=== PATIENT | female | born 1990 | race Two or more races ===

== ENCOUNTER 2018-11-23 10:47 | Emergency (ER) | payer SELFPAY ==
--- NOTE | 2018-11-23 11:20 | ED PDOC ---
Arrival/HPI - General Historian: Patient - History of Present Illness Narrative History of Present Illness (Text): 11/23/18 11:18 28F past medical history of allergic rhinitis presents with a severe headache and frontal sinus congestion. worse in frontal sinus, took mucinex with no relief, pt says home dose of sinuglair does not work either. Pt also complains of a cough. Pt denies fevers, nausea, vomiting, chest pain, neck pain, dizziness, vision changes, neck pain, hearing changes, 11/23/18 12:21 Time/Duration: 24 hours Symptom Course: Unchanged Quality: Fullness Activities at Onset: Rest <Avery Fallon - Last Filed: 11/23/18 12:02> <Norberto Jerry - Last Filed: 11/23/18 13:53> - General Chief Complaint: Headache Time Seen by Provider: 11/23/18 10:58 Past Medical History - Provider Review Nursing Documentation Reviewed: Yes - Infectious Disease Hx of Infectious Diseases: None - Reproductive Menopause: No - Cardiac Hx Cardiac Disorders: No - Pulmonary Hx Respiratory Disorders: No - Neurological Hx Neurological Disorder: No - HEENT Hx HEENT Disorder: No - Renal Hx Renal Disorder: No - Endocrine/Metabolic Hx Hypothyroidism: Yes - Psychiatric Hx Substance Use: No - Anesthesia Hx Anesthesia: No <Avery Fallon - Last Filed: 11/23/18 12:02> Family/Social History - Physician Review Nursing Documentation Reviewed: Yes Family/Social History: Unknown Family HX Smoking Status: Unknown If Ever Smoked Hx Alcohol Use: Yes Frequency of alcohol use: Socially Hx Substance Use: No <Avery Fallon - Last Filed: 11/23/18 12:02> Allergies/Home Meds <Avery Fallon - Last Filed: 11/23/18 12:02> <Norberto Jerry - Last Filed: 11/23/18 13:53> Allergies/Adverse Reactions: Allergies seasonal Allergy (Uncoded 11/23/18 11:00) COUGH Home Medications: Home Meds Medication Instructions Recorded Confirmed Levothyroxine [Synthroid] 0.112 mg PO DAILY 11/23/18 11/23/18 Montelukast [Singulair] 10 mg PO DAILY 11/23/18 11/23/18 Review of Systems - Physician Review All systems were reviewed & negative as marked: Yes - Review of Systems Constitutional: absent: Fevers, Night Sweats Eyes: Eye Pain. absent: Vision Changes ENT: absent: Hearing Changes, Sore Throat, Epistaxis Respiratory: Cough Cardiovascular: absent: Chest Pain Gastrointestinal: absent: Abdominal Pain, Nausea, Vomiting Musculoskeletal: absent: Arthralgias, Back Pain, Neck Pain, Myalgias Skin: absent: Rash Neurological: Headache. absent: Dizziness <Avery Fallon - Last Filed: 11/23/18 12:02> Physical Exam Vital Signs Temp Pulse Resp BP Pulse Ox 11/23/18 11:13 98.4 F 71 18 116/58 L 99 11/23/18 10:55 98.2 F 86 18 117/71 98 Temperature: Afebrile Blood Pressure: Normal Pulse: Regular Respiratory Rate: Normal Appearance: Positive for: Well-Appearing, Non-Toxic, Uncomfortable Pain Distress: Moderate Mental Status: Positive for: Alert and Oriented X 3 - Systems Exam Head: Present: Atraumatic, Normocephalic Pupils: Present: PERRL Extroacular Muscles: Present: EOMI Conjunctiva: Present: Normal. No: Injected Ears: Present: Normal. No: Erythema Mouth: Present: Moist Mucous Membranes Nose (Internal): Present: Boggy, Other (front and maxially sinus tenderness). No: Rhinorrhea Neck: Present: Normal Range of Motion, Other (neg mastoid pain on palp bilaterally). No: Lymphadenopathy Respiratory/Chest: Present: Clear to Auscultation. No: Respiratory Distress, Wheezes Cardiovascular: Present: Regular Rate and Rhythm, Normal S1, S2. No: Murmurs Upper Extremity: Present: NORMAL PULSES Lower Extremity: Present: Normal Inspection Neurological: Present: CN II-XII Intact, Speech Normal Skin: Present: Warm, Dry, Normal Color <Avery Fallon - Last Filed: 11/23/18 12:02> Vital Signs Temp Pulse Resp BP Pulse Ox 11/23/18 11:13 98.4 F 71 18 116/58 L 99 11/23/18 10:55 98.2 F 86 18 117/71 98 <Norberto Jerry - Last Filed: 11/23/18 13:53> Medical Decision Making ED Course and Treatment: 11/23/18 12:02 #allergic sinusitis -toradol 60mg IVP -pseudophed tab PO stat <Avery Fallon - Last Filed: 11/23/18 12:02> ED Course and Treatment: 11/23/18 13:50 Impression: 28 year old female presents to the emergency department complaining of a severe headache and frontal sinus congestion. In agreement with resident note which contains more details about the patient. Patient seen and evaluated with resident. Came up with plan and treatment together. Plan: -- Sudafed -- Toradol -- Tylenol -- Influenza A B -- Rapid Step Group A Antigen - Lab Interpretations Lab Results: Lab Results 11/23/18 11:24: Influenza Typ A,B (EIA) Negative for flu a/b, Grp A Beta Strep Ag Negative - Medication Orders Current Medication Orders: Discontinued Medications Ketorolac Tromethamine (Toradol) 60 mg IM STAT STA Stop: 11/23/18 12:15 Last Admin: 11/23/18 12:27 Dose: 60 mg MAR Pain Assessment Document 11/23/18 12:27 BB (Rec: 11/23/18 12:27 BB [id number]) Pain Reassessment Is this a pain reassessment? No Sleep Is patient sleeping during reassessment? No Presence of Pain Presence of Pain Yes Pain Scale Used Protocol: PSCALES Pain Scale Used Numeric Location Pain Location Body Manager Outreach Description Description Throbbing Intensity of Pain at present 6 Pain Behavior Withdrawal from Touch Grasping Site Rubbing Site IM Administration Charges Document 11/23/18 12:27 BB (Rec: 11/23/18 12:27 BB [id number]) Injection Site MAR Injection Site Left Gluteus Terrance Charges for Administration # of IM Administrations 1 Pseudoephedrine HCl (Sudafed Tab) 30 mg PO STAT STA Stop: 11/23/18 11:50 Last Admin: 11/23/18 12:27 Dose: 30 mg <Nroberto Jerry - Last Filed: 11/23/18 13:53> - PA / RN LONG TERM CARE / Resident Statement / has reviewed & agrees with the documentation as recorded. / has examined the patient and agrees with the treatment plan. - Scribe Statement The provider has reviewed the documentation as recorded by the Scribe Ronen murillo with Suni All medical record entries made by the Scribe were at my direction and personally dictated by me. I have reviewed the chart and agree that the record accurately reflects my personal performance of the history, physical exam, medical decision making, and the department course for this patient. I have also personally directed, reviewed, and agree with the discharge instructions and disposition. <Norberto Jerry - Last Filed: 11/23/18 13:53> Disposition/Present on Arrival - Present on Arrival Any Indicators Present on Arrival: No History of DVT/PE: No History of Uncontrolled Diabetes: No Urinary Catheter: No History of Decub. Ulcer: No History Surgical Site Infection Following: None - Disposition Have Diagnosis and Disposition been Completed?: Yes Disposition Time: 12:02 <Avery Fallon - Last Filed: 11/23/18 12:02> <Norberto Jerry - Last Filed: 11/23/18 13:53> - Disposition Diagnosis: Sinusitis Disposition: HOME/ ROUTINE Condition: GOOD Discharge Instructions (ExitCare): Sinus Headache (DC) Additional Instructions: CHANCE GERBER, thank you for letting us take care of you today. Your provider was Norberto Jerry MD and you were treated for headache / sore throat. The emergency medical care you received today was directed at your acute symptoms. If you were prescribed any medication, please fill it and take as directed. It may take several days for your symptoms to resolve. Return to the Emergency Department if your symptoms worsen, do not improve, or if you have any other problems. Please contact your doctor or call one of the physicians/clinics you have been referred to that are listed on the Patient Visit Information form that is included in your discharge packet. Bring any paperwork you were given at discharge with you along with any medications you are taking to your follow up visit. Our treatment cannot replace ongoing medical care by a primary care provider outside of the emergency department. Thank you for allowing the [facility] team to be part of your care today. You may follow up with an [employer]aper Car[employer] Supervisor, please obtain referral from PMD If you had an X-Ray or CT scan: A Radiologist will review the ED reading if any change in treatment is needed we will contact you. If you had a blood, urine, or wound culture: It will take several days for the results, if any change in treatment is needed we will contact you. If you had an STI test: It will take 48 hours for the results. Please call after 1 week if you have not heard back. Prescriptions: D-Methorphan/PE/Acetaminophen [Vicks Dayquil Liquicaps] 1 each PO Q4 #12 capsule Forms: [employer] (Bangladeshi), WORK NOTE
[2018-11-23 11:53] LABS: INFLUENZA A B NEGATIVE FOR FLU A/B (NEGATIVE)
[2018-11-23 13:07] VITALS: BP 116/58; PULSE 71; RESP 18; TEMP 98.4; O2SAT 99
== END 2018-11-23 12:02 | disposition home or self-care (01) ==
LOC: ED 10:47
DX: J32.9 Chronic sinusitis, unspecified (principal)
CPT/HCPCS: 87070; 87430; 87804; 96372; 99285; J1885

== ENCOUNTER 2019-01-02 11:00 | Inpatient (IN) | payer OTHER ==
[2019-01-02 11:25] VITALS: BMI 23.3
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
[2019-01-02 12:32] LABS: URINE APPEARANCE SLIGHT-CLOUDY (CLEAR); URINE BILIRUBIN NEGATIVE (NEGATIVE); URINE BLOOD MODERATE (NEGATIVE); URINE COLOR YELLOW (YELLOW); URINE GLUCOSE (UA) NEGATIVE (NEGATIVE); URINE LEUKOCYTE ESTERASE TRACE Leu/uL (NEGATIVE); URINE PROTEIN 100 mg/dL (<30 mg/dL); URINE UROBILINOGEN 0.2 E.U./dL (<1 E.U./dL)
[2019-01-02 12:34] LABS: BASO # 0.02 K/mm3 (0.0-2.0); BASO % 0.3 % (0.0-3.0); EOS % 0.4 % (1.5-5.0); HEMOGLOBIN 11.1 g/dL (12.0-16.0); LYMPH # 1.5 (1.2-3.4); LYMPH % 21.1 % (22.0-35.0); MEAN CORPUSCULAR HEMOGLOBIN 28.2 pg (25.0-35.0); MEAN CORPUSCULAR HGB CONC 33.1 g/dl (31.0-37.0); MEAN PLATELET VOLUME 10.2 fl (7.0-11.0); MONO # 0.5 (0.1-0.6); MONO % 6.6 % (1.0-6.0); RBC 3.94 10^6/uL (3.5-6.1); RED CELL DISTRIBUTION WIDTH 13.4 % (11.5-14.5); WHITE BLOOD COUNT 7.3 10^3/uL (4.5-11.0)
[2019-01-02 12:38] LABS: URINE BACTERIA MANY /hpf; URINE RBC 15 - 20 /hpf (0-2)
[2019-01-02 12:39] LABS: URINE AMORPHOUS SEDIMENT FEW /hpf; URINE COARSE GRANULAR CAST TRACE /hpf; URINE FINE GRANULAR CAST 0 - 2 /hpf
[2019-01-02] MEDS: Sodium Chloride 0.9% 1,000 ML IV SCH ×2 (12:42→23:14)
[2019-01-02 12:44] LABS: ALB/GLOB RATIO 1.2 (1.1-1.8); ALBUMIN 4.9 g/dL (3.0-4.8); AST/SGOT 24 U/L (14-36); BLOOD UREA NITROGEN 18 mg/dL (7-21); CALCIUM 9.6 mg/dL (8.4-10.5); GFR NON-AFRICAN AMERICAN 22
[2019-01-02 12:45] LABS: ALT/SGPT < 6 U/L (7-56)
--- NOTE | 2019-01-02 14:26 | CT ---
Date of service: 01/02/2019 PROCEDURE: CT Abdomen and Pelvis without intravenous contrast HISTORY: flank pain, abnormal kidney function COMPARISON: None. TECHNIQUE: Without contrast.. Contrast dose: 0 Radiation dose: Total exam DLP = 263.39 mGy-cm. This CT exam was performed using one or more of the following dose reduction techniques: Automated exposure control, adjustment of the mA and/or kV according to patient size, and/or use of iterative reconstruction technique. FINDINGS: LOWER THORAX: Unremarkable. LIVER: Unremarkable. No gross lesion or ductal dilatation. GALLBLADDER AND BILE DUCTS: Unremarkable. PANCREAS: Unremarkable. No gross lesion or ductal dilatation. SPLEEN: Unremarkable. ADRENALS: Unremarkable. No mass. KIDNEYS AND URETERS: Unremarkable. No hydronephrosis. No solid mass. VASCULATURE: Unremarkable. No aortic aneurysm. No aortic atherosclerotic calcification or mural plaque present. BOWEL: No bowel obstruction. Moderate retained feces. Likely constipation. No abnormal bowel loops. APPENDIX: Appendix not identified. There are surgical sutures seen about the cecum and about the proximal ascending colon, of uncertain significance. This may reflect prior appendectomy. Please correlate with patient's history. PERITONEUM: Minimal fluid in cul-de-sac. LYMPH NODES: Unremarkable. No enlarged lymph nodes. BLADDER: Suboptimally distended. No gross abnormality. REPRODUCTIVE: Unremarkable uterus BONES: No acute fracture. OTHER FINDINGS: None. IMPRESSION: No evidence of appendicitis. Postoperative changes suggests possible prior appendectomy. Minimal fluid in cul-de-sac common nonspecific. Retained feces. Likely constipation.
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
[2019-01-02 17:20] LABS: BARBITURATES, UR NEGATIVE (NEGATIVE); BENZODIAZEPINES, UR NEGATIVE (NEGATIVE); OPIATES, UR NEGATIVE (NEGATIVE); PHENCYCLIDINE, UR NEGATIVE (NEGATIVE)
[2019-01-02] MEDS: POLYETHYLENE GLYCOL 3350 17 GM/Dose PACKET PO SCH (17:47)
[2019-01-02 18:06] LABS: IRON 44 ug/dL (45-180)
[2019-01-02 18:15] LABS: % IRON SATURATION 14 % (20-55); TOTAL IRON BINDING CAPACITY 320 ug/dL (265-497)
[2019-01-03 01:23] LABS: MCH 28.8 pg (27.0-33.0); MCV 85.8 fL (80.0-100.0)
[2019-01-03] MEDS: Sodium Chloride 0.9% 1,000 ML IV SCH ×4 (05:32→21:00)
[2019-01-03 06:16] LABS: BASO # 0.01 K/mm3 (0.0-2.0); BASO % 0.1 % (0.0-3.0); EOS % 0.5 % (1.5-5.0); HEMOGLOBIN 10.6 g/dL (12.0-16.0); LYMPH # 1.3 (1.2-3.4); LYMPH % 18.2 % (22.0-35.0); MEAN CELL VOLUME 85.7 fl (80.0-105.0); MEAN CORPUSCULAR HEMOGLOBIN 28.6 pg (25.0-35.0); MEAN CORPUSCULAR HGB CONC 33.3 g/dl (31.0-37.0); MEAN PLATELET VOLUME 10.6 fl (7.0-11.0); MONO # 0.8 (0.1-0.6); MONO % 10.3 % (1.0-6.0); RBC 3.71 10^6/uL (3.5-6.1); RED CELL DISTRIBUTION WIDTH 13.3 % (11.5-14.5); WHITE BLOOD COUNT 7.4 10^3/uL (4.5-11.0)
[2019-01-03 06:54] LABS: FREE T4 1.19 ng/dL (0.78-2.19); T4 7.1 ug/dL (5.5-11.0)
[2019-01-03 07:07] LABS: T3 0.71 ng/mL (0.97-1.69)
[2019-01-03] MEDS ORDERED: Levothyroxine 112 MCG TAB PO SCH ×2 (07:30→20:17)
[2019-01-03 07:33] LABS: ALB/GLOB RATIO 1.3 (1.1-1.8); ALBUMIN 4.2 g/dL (3.0-4.8); ALT/SGPT < 6 U/L (7-56); AST/SGOT 20 U/L (14-36); BLOOD UREA NITROGEN 16 mg/dL (7-21); CALCIUM 8.9 mg/dL (8.4-10.5); GFR NON-AFRICAN AMERICAN 27
--- NOTE | 2019-01-03 09:38 | CARD ---
APPROVED REPORT Date of service: 01/02/2019 EKG Measurement Heart [id number] <Conclusion> Sinus rhythm with marked sinus arrhythmia Otherwise normal ECG
[2019-01-03] MEDS: POLYETHYLENE GLYCOL 3350 17 GM/Dose PACKET PO SCH (10:07)
[2019-01-03 12:01] LABS: COMPLEMENT C4 35.7 mg/dL (14.0-44.0)
[2019-01-03 13:02] LABS: FOLATE 6.6 ng/mL
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
[2019-01-03 16:37] VITALS: TEMP 98.4
[2019-01-03 18:18] LABS: ALBUMIN (PEP) 4.2 g/dL (3.8-4.8); ALPHA-1-GLOBULIN (PEP) 0.4 g/dL (0.2-0.3)
[2019-01-03 21:16] LABS: HEMOGLOBIN A 96.4 Percent (>96.0); HEMOGLOBIN A2 2.6 Percent (1.8-3.5)
[2019-01-04] MEDS: Sodium Chloride 0.9% 1,000 ML IV SCH (04:35)
[2019-01-04] MEDS ORDERED: Pantoprazole 40 mg EC Tab PO SCH (06:00)
[2019-01-04 06:40] LABS: BASO # 0.01 K/mm3 (0.0-2.0); BASO % 0.2 % (0.0-3.0); EOS # 0.1 (0.0-0.7); EOS % 1.2 % (1.5-5.0); HEMOGLOBIN 9.3 g/dL (12.0-16.0); LYMPH # 1.7 (1.2-3.4); LYMPH % 29.2 % (22.0-35.0); MEAN CELL VOLUME 85.8 fl (80.0-105.0); MEAN CORPUSCULAR HEMOGLOBIN 28.2 pg (25.0-35.0); MEAN CORPUSCULAR HGB CONC 32.9 g/dl (31.0-37.0); MEAN PLATELET VOLUME 10.9 fl (7.0-11.0); MONO # 0.4 (0.1-0.6); RBC 3.3 10^6/uL (3.5-6.1); RED CELL DISTRIBUTION WIDTH 13.2 % (11.5-14.5); WHITE BLOOD COUNT 5.8 10^3/uL (4.5-11.0)
[2019-01-04 07:14] LABS: ALB/GLOB RATIO 1.2 (1.1-1.8); ALBUMIN 3.6 g/dL (3.0-4.8); CALCIUM 8.5 mg/dL (8.4-10.5)
[2019-01-04 07:54] VITALS: BP 126/59; PULSE 76; RESP 18; O2SAT 99
[2019-01-04] MEDS: POLYETHYLENE GLYCOL 3350 17 GM/Dose PACKET PO SCH (09:27)
[2019-01-04] MEDS ORDERED: Levothyroxine 125 MCG TAB PO SCH (12:14)
[2019-01-04 12:30] LABS: CREATININE,RANDOM URINE 32 mg/dL; TOTAL PROTEIN,RANDOM URINE 15 mg/L
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
== END 2019-01-04 16:44 | disposition home or self-care (01) | DRG 684 ==
LOC: ED 11:00 → ERH 16:24 → 3RNO 18:19
PROVIDERS: ADMIT Internal Medicine; ATTEND Internal Medicine
DX: N17.9 Acute kidney failure, unspecified (principal); D50.9 Iron deficiency anemia, unspecified; E89.0 Postprocedural hypothyroidism; K59.00 Constipation, unspecified; R70.0 Elevated erythrocyte sedimentation rate; R80.9 Proteinuria, unspecified

== ENCOUNTER 2019-01-02 11:00 | Emergency (ER) | payer OTHER ==
[2019-01-02 11:25] VITALS: BMI 23.3
== END 2019-01-02 16:24 | disposition home or self-care (01) ==
LOC: ED 11:00
DX: N17.9 Acute kidney failure, unspecified (principal); D50.9 Iron deficiency anemia, unspecified; E89.0 Postprocedural hypothyroidism; K59.00 Constipation, unspecified; R70.0 Elevated erythrocyte sedimentation rate; R80.9 Proteinuria, unspecified
CPT/HCPCS: 74176; 80053; 80061; 80324; 80345; 80346; 80349; 80353; 80358; 80361; 81001; 81025; 82550; 82607; 82728; 82746; 83021; 83540; 83550; 83735; 83992; 84100; 84155; 84165; 84443; 85014; 85018; 85025; 85041; 85044; 85651; 86038; 86140; 87040; 93005; 99285; J7030